=== PATIENT | female | born 1975 | race Caucasian/White ===

== ENCOUNTER 2023-11-25 21:03 | Emergency (ER) | payer SELFPAY ==
--- NOTE | ~2023-11-25 | CT_ITS ---
EXAMINATION: CT pelvis w con DATE: 11/25/2023 22:47 INDICATION: Large abscess of left groin/labial region TECHNIQUE: Computed tomography (CT) of the pelvis was performed with 100 CC Omnipaque 350 intravenous contrast. Automated exposure control and iterative reconstruction technique were employed. Exam dose : 406.55 mGy-cm total exam DLP. COMPARISON: 11/24/2019 CT abdomen pelvis FINDINGS: There is a small subcutaneous abscess of the anterior left perineal and labial measuring ap proximately 2.4 cm AP and 2.1 cm transverse dimension, 1.8 cm vertical dimension. There is surroundin g fat stranding and mild skin thickening, extending into the suprapubic and left inguinal soft tissue s. Normal appendix. No bowel obstruction, bowel wall thickening, pneumatosis or intraperitoneal free air is detected. No pelvic mass lesion or abnormal pelvic fluid collection is detected. Included skeletal structures are unremarkable. IMPRESSION: Small left labial abscess with surrounding inflammation/cellulitis Reviewed, dictated and finalized at [facility] Reviewed, dictated and finalized at [facility]. REP
[2023-11-25 21:13] VITALS: BP 154/95; PULSE 104; RESP 16; TEMP 37.3; O2SAT 98
[2023-11-25 22:18] LABS: Basophils Percent Auto 0.2 % (0.2-1.2); Eosinophils Percent Auto 0.1 % (0-4.4); Hematocrit 38.1 % (37.0-47.0); Hemoglobin 12.2 g/dL (12.0-15.0); Immature Granulocyte Absolute 0.02 K/mm3 (0.00-0.031); Immature Granulocyte Percent A 0.2 % (0-0.5); Mean Corpuscular Hemoglobin 28.8 pg (26-34); Mean Corpuscular Volume 90.1 fl (80-100); Mean Platelet Volume 10.3 fl (7.4-10.4); Monocytes Absolute Auto 0.8 K/mm3 (0.1-0.6); Monocytes Percent Auto 9.4 % (2.6-8.5); Neutrophils Absolute Auto 5.9 K/mm3 (1.3-6.7); Neutrophils Percent Auto 69.1 % (45.5-73.1); Platelet Count Result 253 k/mm3 (150-375); Red Blood Count 4.23 M/mm3 (4.2-5.4); Red Cell Distribution Width 13.3 % (11.5-14.5); White Blood Count 8.6 K/mm3 (4.5-10.0)
--- NOTE | 2023-11-25 22:24 | ED.SKABFB ---
HPI - Skin/Abscess/Foreign Bdy General Chief complaint: Skin/Abscess/Foreign Body Stated complaint: abcess? L thigh Time Seen by Provider: 11/25/23 21:16 Source: patient Mode of arrival: ambulatory Limitations: no limitations History of Present Illness HPI narrative: Patient is a 48-year-old female who presents the ED with report of an abscess to her left groin. Patient reports she frequently gets ingrown hairs in her pubic region. Reports previous diagnosis of possible HS. She first noticed an area of skin irritation to her left labia/inguinal region on . States the area has since grown in size, increased pain, redness, firmness. Irritation worse with ambulation. Patient denies any pustular head information. She has tried using warm compresses, but denied improvement. Denies any drainage from the area. Denies known fevers. Denies nausea or vomiting. Patient took hydrocodone earlier today, but has not had anything for pain at several hours. Related Data Allergies Allergy/AdvReac Type Severity Reaction Status Date / Time silver sulfadiazine Allergy Mild syncope Verified 12/02/19 13:26 Review of Systems Review of Systems: CONSTITUTIONAL: Denies fever, chills, or sweats. SKIN: See HPI MUSCULOSKELETAL: See HPI All systems reviewed & are unremarkable except as noted in HPI and below PMFSH Past Medical History Medical History Anxiety Back pain History of DVT (deep vein thrombosis) Surgical History Surgical History delivery delivered Family History Family History Other Heart disease Social History Social History Smoking status: Never smoker Gender identity (if verbalized by the patient): Female Exam Narrative: GENERAL: Uncomfortable appearing, well-nourished, non-toxic, in mild acute distress due to pain. HEAD: Normocephalic, atraumatic. RESPIRATORY: Airway patent, respirations nonlabored. Clear to auscultation bilaterally, no rales, rhonchi, wheezing. CARDIOVASCULAR: Regular rate and rhythm without murmurs, rubs, or gallops. ABDOMINAL: Soft, minimal periumbilical tenderness, nondistended. Normoactive BS. MUSCULOSKELETAL: Moves all extremities. No gross deformities. SKIN: Warm, dry, normal color. Large area of induration, tenderness to L outer labia/perineal region extending into inguinal region/proximal medial thigh. Superficial area of skin opaqueness, focal fluctuance, no active drainage. NEURO: A&O X3. Speech clear. Cranial nerves II-XII grossly intact. Steady gait. No ataxic movements. PSYCHIATRIC: Appropriate mood and affect. Normal interaction. Course Vital Signs Vital signs: Vital Signs Temperature 99.1 F 11/25/23 21:13 Pulse Rate 104 H 11/25/23 21:13 Respiratory Rate 16 11/25/23 21:13 Blood Pressure 154/95 H 11/25/23 21:13 Pulse Oximetry 98 11/25/23 21:13 Oxygen Delivery Room Air 11/25/23 21:13 Temperature 98.2 F 11/26/23 01:28 Pulse Rate 86 11/26/23 01:28 Respiratory Rate 16 11/26/23 01:28 Blood Pressure 142/92 H 11/26/23 01:28 Pulse Oximetry 99 11/26/23 01:28 Oxygen Delivery Room Air 11/25/23 21:13 Procedures Abscess I/D other: Date of Incision: 11/26/23 Time of Incision: 12:50 Side (if applicable): left (perineum/labial fold) Sedation/analgesia: none Local Anesthetic: lidocaine 1% Amount of anesthesia used (mL): 5 Technique: incised with #11 blade and probed loculations Amount of fluid expressed (mL): 8 Irrigation: Yes Packing used?: iodoform I&D Results: Pus and Blood Complications: other (none) MDM - Skin/Abscess/Foreign Bdy MDM Narrative Medical decision making narrative: Abscess to left labia
[2023-11-25 22:30] LABS: Anion Gap 9 mmol/L (8-16); Blood Urea Nitrogen 18 mg/dL (7-17); Calcium 9.9 mg/dL (8.4-10.2); Carbon Dioxide 25 mmol/L (22-30); Chloride 105 mmol/L (98-107); Estimated CRCL calculation 58 ml/min; Estimated Glomerular Filt Rate 59; Glucose 96 mg/dL (65-110); Potassium 3.8 mmol/L (3.4-5.0); Sodium 139 mmol/L (137-145)
[2023-11-25] MEDS: MORPHINE SULFATE (*CRX) 4 MG/ML INJ IV PUSH (22:44)
[2023-11-25] MEDS: ACETAMINOPHEN 500 MG TABLET 1000 MG PO (22:45)
[2023-11-25] MEDS: ONDANSETRON INJ 4 MG/2 ML VIAL IV PUSH (22:45)
[2023-11-26 00:37] LABS: Estimated CRCL calculation 53 ml/min; Estimated Glomerular Filt Rate 53
--- NOTE | 2023-11-26 01:13 | PC.NURSE ---
Patient was given septra
[2023-11-26 01:28] VITALS: BP 142/92; PULSE 86; RESP 16; TEMP 36.8; O2SAT 99
== END 2023-11-26 01:29 | disposition home or self-care (01) ==
PROVIDERS: Emergency Provider Physician Assistant
DX: L02.215 Cutaneous abscess of perineum (principal); Z86.718 Personal history of other venous thrombosis and embolism
CPT/HCPCS: 36415; 56405; 72193; 80048; 85025; 87070; 87205; 96374; 96375; 99284; A9270; J2270; J2405; Q9967